=== PATIENT | female | born 1990 | race African-American/Black ===

== ENCOUNTER 2023-03-22 08:42 | Emergency (ER) | payer OTHER, MEDICAID, SELFPAY ==
[2023-03-22 08:53] VITALS: BP 118/79; PULSE 70; RESP 16; TEMP 36.8; O2SAT 100
[2023-03-22 08:59] VITALS: BP 115/73; PULSE 63; RESP 18; TEMP 36.8; O2SAT 100
--- NOTE | 2023-03-22 09:06 | PC.NURSE ---
Pt refused IV line.
[2023-03-22 09:27] LABS: Basophils Absolute Auto 0.1 K/mm3 (0.0-0.1); Basophils Percent Auto 1.3 % (0.2-1.2); Eosinophils Absolute Auto 0.1 K/mm3 (0-0.3); Eosinophils Percent Auto 1.3 % (0-4.4); Hematocrit 41.4 % (37.0-47.0); Hemoglobin 13.7 g/dL (12.0-15.0); Immature Granulocyte Absolute 0.02 K/mm3 (0.00-0.031); Immature Granulocyte Percent A 0.4 % (0-0.5); Lymphocytes Absolute Auto 2.41 K/mm3 (0.9-3.2); Lymphocytes Percent Auto 45.5 % (18.3-44.2); Mean Corpuscular HGB Conc 33.1 g/dl (32-36); Mean Corpuscular Hemoglobin 29.2 pg (26-34); Mean Corpuscular Volume 88.3 fl (80-100); Mean Platelet Volume 8.8 fl (7.4-10.4); Monocytes Absolute Auto 0.4 K/mm3 (0.1-0.6); Monocytes Percent Auto 7.5 % (2.6-8.5); Neutrophils Absolute Auto 2.3 K/mm3 (1.3-6.7); Platelet Count Result 345 k/mm3 (150-375); Red Blood Count 4.69 M/mm3 (4.2-5.4); Red Cell Distribution Width 14.4 % (11.5-14.5); White Blood Count 5.3 K/mm3 (4.5-10.0)
--- NOTE | 2023-03-22 09:29 | ED.ABDPAIN ---
HPI - Abdominal Pain General Chief Complaint: Abdominal Pain Stated Complaint: abdominal pain Time Seen by Provider: 03/22/23 08:54 History of Present Illness HPI narrative: 32-year-old female presented the ED for evaluation of diarrhea abdominal cramping and suspected dehydration. Patient recently returned from [place]. Patient states she got home on Thursday but started developing symptoms on Thursday when she was in [place]. Patient does report abdominal cramping and diarrhea. Patient denies any blood in her stool. Patient reports she was fully immunized prior to travel. Patient declined an IV but did provide a stool sample. Related Data Allergies Allergy/AdvReac Type Severity Reaction Status Date / Time No Known Allergies Allergy Verified 03/22/23 09:03 Review of Systems Review of Systems: All systems reviewed & are unremarkable except as noted in HPI and below Exam Narrative: APPEARANCE: Well appearing, no pain, no distress, well-nourished. HEAD: normocephalic, atraumatic. EYES: PERRLA/EOMI, conjunctivae clear. NOSE: Normal no drainage NECK: Supple. No adenopathy, no masses. RESPIRATORY: Airway patent, respirations nonlabored. Clear to auscultation bilaterally, no rales, rhonchi, wheezing. CARDIOVASCULAR: Regular rate and rhythm without murmurs rubs or gallops. ABDOMINAL: Soft, nontender, nondistended, normal bowel sounds MUSCULOSKELETAL: Moves all extremities. Strength/ROM intact, No edema, No calf tenderness. NEURO: Alert. Cranial nerves II through XII intact. Grossly intact SKIN: Warm, dry. Normal Color PSYCHIATRIC: Normal affect/mood. Course Course Emergency Course: 32-year-old female presented to the ED for evaluation of diarrhea. Patient was afebrile with no leukocytosis. Patient has a normal hemoglobin. No significant abnormalities on her CMP lipase was negative. Urine did have leuk esterase and bacteria but also had squamous cells. Urine culture was ordered. Patient did provide a formed stool in the ED. C. difficile was negative stool cultures are pending. Patient was encouraged to have close follow-up with her primary care physician. All questions concerns were addressed. Vital Signs Vital signs: Vital Signs Temperature 98.2 F 03/22/23 08:53 Pulse Rate 70 03/22/23 08:53 Respiratory Rate 16 03/22/23 08:53 Blood Pressure 118/79 03/22/23 08:53 Pulse Oximetry 100 03/22/23 08:53 Temperature 98.2 F 03/22/23 08:59 Pulse Rate 63 03/22/23 08:59 Respiratory Rate 20 03/22/23 10:39 Blood Pressure 115/73 03/22/23 08:59 Pulse Oximetry 100 03/22/23 08:59 Oxygen Delivery Room Air 03/22/23 08:59 MDM - Abdominal Pain Differential Diagnosis Differential diagnosis: Likely abdominal pain Lab Data Attestation: I reviewed the patient's lab results. 03/22/23 09:21 03/22/23 09:21 Labs: Lab Results 03/22/23 03/22/23 Range/Units 09:21 09:26 WBC 5.3 (4.5-10.0) K/mm3 RBC 4.69 (4.2-5.4) M/mm3 Hgb 13.7 (12.0-15.0) g/dL Hct 41.4 (37.0-47.0) % MCV 88.3 (80-100) fl MCH 29.2 (26-34) pg MCHC 33.1 (32-36) g/dl RDW 14.4 (11.5-14.5) % Plt Count 345 (150-375) k/mm3 MPV 8.8 (7.4-10.4) fl Immature Gran % (Auto) 0.4 (0-0.5) % Neut % (Auto) 44.0 L (45.5-73.1) % Lymph % (Auto) 45.5 H (18.3-44.2) % [place] % (Auto) 7.5 (2.6-8.5) % Eos % (Auto) 1.3 (0-4.4) % Baso % (Auto) 1.3 H (0.2-1.2) % Lymph # (Auto) 2.41 (0.9-3.2) K/mm3 [place] # (Auto) 0.4 (0.1-0.6) K/mm3 Eos # (Auto) 0.1 (0-0.3) K/mm3 Baso # (Auto) 0.1 (0.0-0.1) K/mm3 Abs Immat Gran (auto) 0.02 (0.00-0.031) K/mm3 Absolute Neuts (auto) 2.3 (1.3-6.7) K/mm3 Absolute Nucleated RBC 0.0 (0.0-0.012) K/mm3 Nucleated RBC % 0.0 (0.0-0.2) % Platelet Estimate Adequate (Adequate) Anisocytosis 1+ (NORMAL) Schistocytes None seen (NORMAL) Sodium 135 L (137-145) mmol/L Potassium 4.0 (3.4-5.0) mmol
[2023-03-22 09:31] LABS: Appearance Urine Cloudy (Clear); Bacteria Urine 1+ /hpf; Bilirubin Urine Negative (Negative); Blood Urine Negative (Negative); Color Urine Yellow (Yellow); Glucose Urine UA Negative (Negative); Ketones Urine Negative (Negative); Leukocyte Esterase Ur 2+ LEU/UL (Negative); Nitrate Urine Negative (Negative); Non Pathogenic Casts 0-2; Protein Urine Negative (Negative); RBC Urine 0-2 /hpf (0-2); Specific Grav Ur 1.018 (1.001-1.035); Squamous Epithelial Cell Urine Many /hpf (Few); Urobilinogen Urine 0.2 mg/dL (<2.0); pH Urine 6.5 (5.0-9.0)
[2023-03-22 09:39] LABS: Alanine Aminotransferase 17 U/L (6-35); Alkaline Phosphatase 65 U/L (38-126); Anion Gap 4 mmol/L (8-16); Aspartate Amino Transferase 23 U/L (14-36); Bilirubin,Total 0.4 mg/dL (0.2-1.3); Blood Urea Nitrogen 10 mg/dL (7-17); Calcium 8.4 mg/dL (8.4-10.2); Carbon Dioxide 25 mmol/L (22-30); Chloride 106 mmol/L (98-107); Estimated CRCL calculation 67 ml/min; Estimated Glomerular Filt Rate > 60; Glucose 83 mg/dL (65-110); Lipase 77 U/L (23-300); Sodium 135 mmol/L (137-145)
[2023-03-22 09:45] LABS: Add Urine Microscopic? YES; Anisocytosis 1+ (NORMAL); Platelet Estimate Adequate (Adequate); Schistocytes None Seen (NORMAL)
[2023-03-22 10:24] LABS: Toxigenic C. Diff NEGATIVE (NEGATIVE)
[2023-03-22 10:39] VITALS: RESP 20
== END 2023-03-22 10:42 | disposition home or self-care (01) ==
PROVIDERS: Emergency Provider Emergency Medicine
DX: R19.7 Diarrhea, unspecified (principal)
CPT/HCPCS: 36415; 80053; 81001; 81025; 83690; 85025; 87045; 87086; 87088; 87177; 87209; 87269; 87272; 87427; 87449; 87493; 89055; 99283